=== PATIENT | male | born 1985 ===

== ENCOUNTER 2022-11-05 13:28 | Emergency (ER) | payer OTHER ==
[~2022-11-05] VITALS: Ht 180.3 cm; Wt 96.0 kg
[2022-11-05 15:47] LABS: CLARITY URINE CLEAR (CLEAR); COLOR URINE YELLOW (YELLOW); KETONES URINE TRACE (NEGATIVE); LEUKOCYTE ESTERASE URINE 1+ (NEGATIVE); NITRITE URINE NEGATIVE (NEGATIVE); OCCULT BLOOD URINE NEGATIVE (NEGATIVE); PH URINE 6.5 (4.5-8.0); PROTEIN URINE TRACE (NEGATIVE); SPECIFIC GRAVITY URINE 1.026 (1.005-1.030)
[2022-11-05] MEDS ORDERED: CLOT15CR27 TP (16:07)
[2022-11-05 16:10] VITALS: BP 128/78
== END 2022-11-05 16:27 | disposition home or self-care (01) ==
LOC: ER 13:43
DX: N48.1 Balanitis (principal)
CPT/HCPCS: 81003; 99283